=== PATIENT | male | born 1950 | race Caucasian/White ===

== ENCOUNTER 2017-10-04 08:23 | Outpatient (CLI) | payer OTHER, MEDICARE ==
[~2017-10-04 08:23] MED LIST: Iopamidol 370 76% 100 ML VIAL ONE
--- NOTE | 2017-10-04 14:28 | MRI ---
BRAIN MRI WITHOUT CONTRAST: Date: 10-04-17 Comparison: None. History: Migraine headaches, vision changes. Technique: Multiplanar, multisequence MR imaging of the brain obtained without contrast. FINDINGS: The diffusion weighted imaging demonstrates no evidence for acute infarction. The axial gradient echo imaging demonstrates no evidence for intracranial hemorrhage. There is degenerative change at the atlantoaxial interspace. Regional bone marrow signal intensity appears within normal limits. The imaged paranasal sinuses/mastoid air cells demonstrate normal signal intensity. Arterial flow voids at the axial level of the skull base appear unremarkable on the T2 weighted imagi ng. There are multiple subcentimeter foci of increased T2 and FLAIR signal scattered throughout the p eriventricular, deep, and subcortical white matter of bilateral frontal lobes. IMPRESSION: Evidence of small vessel disease. No acute infarction or intracranial hemorrhage. No midline shift/ma ss effect or ventricular enlargement. POS: [facility]
--- NOTE | 2017-10-04 14:58 | MRI ---
MRI OF THE RIGHT UPPER EXTREMITY WITHOUT CONTRAST: Date: 10/04/17 INDICATION: Injury to the right ring finger while climbing on to a jet ski last year, concern for possible volar plate rupture. TECHNIQUE: Multiplanar, multisequence MR images were obtained of the right hand. Surface marker was placed in th e region of interest. FINDINGS: There is a complete transection of the proximal aspect of the ring finger PIP volar plate with distra ction of the volar plate fragment approximately 3.0 mm. This is best seen on image 5 of series 11. Th e visualized flexor tendons appear intact. The extensor tendons appear intact. There is some mild pallavi ma within the bone marrow of the ring finger proximal phalangeal shaft, as well as within the volar b ase of the ring finger middle phalanx. The remaining flexor tendon on the visualized index, long, and small finger appear within normal limits. IMPRESSION: 1. Complete full thickness fracture of the proximal aspect of the volar plate of the ring finger PIP joint. 2. Mild reactive marrow edema of the ring finger proximal phalangeal shaft, as well as the volar bas e of the ring finger middle phalanx. POS: [facility]
--- NOTE | 2017-10-04 16:03 | CT ---
EXAM: CT ANGIOGRAM OF THE HEAD AND NECK: HISTORY: Vision changes. Migraine headaches. COMPARISON: None. CORRELATION: Brain MRI 10/04/17. TECHNIQUE: A noncontrast head CT is performed in the axial plane. CT angiogram of the head and neck is performed in the axial plane. Three-dimensional reformatted [place] ges are submitted for interpretation. FINDINGS: NONCONTRAST HEAD CT: No parenchymal hemorrhage. No extraaxial hematoma. No midline shift. Basilar cisterns are patent. Brain volume, age appropriate. Cortical berg-white matter differentiation is preserved. Ventricles and sulci are patent and symmetric. Minimal white matter hypodensities due to chronic small-vessel ischemic changes are noted. Adequate aeration of the sinuses and mastoid air cells. POSTCONTRAST HEAD CT: Cortical berg-white matter differentiation is preserved. Ventricles and sulci are patent and symmetr ic. Visualized ocular lenses have appropriate location. Bilateral globes are intact. Retrobulbar fat is preserved. Symmetric attenuation of the optic nerves and ocular rectus muscles. Aerodigestive tract is patent. No mucosal abnormality. Midline fatty raphae of the tongue is preser gray. There is limited evaluation of the oral cavity due to dental amalgam artifact. Symmetric attenuation of the parotid and submandibular glands. Symmetric attenuation of the sternocl eidomastoid muscles. Appropriate attenuation of the thyroid gland. No evidence of lymphadenopathy by size criteria. Cervical spine vertebral body height is maintained. No fracture. No prevertebral soft tissue swelli ng. No epidural hematoma. Visualized lung apices and upper mediastinum are unremarkable. CT ANGIOGRAM: The aortic arch has overall appropriate enhancement of luminal diameter. RIGHT CAROTID: The innominate artery origin has appropriate enhancement and luminal diameter. The right common [place] tid artery has appropriate enhancement and luminal diameter. At the right carotid bifurcation, there is a small focus of outpouching of contrast on the posterior slightly medial aspect of the carotid bifurcation implying a small ulceration. There is a small focu s of short segment mild to moderate stenosis involving the proximal-most right internal carotid arter y. The remainder of the right internal carotid artery has appropriate enhancement and luminal diamet er. LEFT CAROTID: The left carotid artery origin has appropriate enhancement and luminal diameter. The left common car otid artery has appropriate enhancement and luminal diameter. There is short-segment moderate mild s tenosis involving the proximal left internal carotid artery. There is associated eccentric thrombus. A small focus of ulceration is noted (axial image 132, series 5). The remainder of the left international banker al carotid artery has appropriate enhancement and luminal diameter. The origin of the left and right vertebral artery are patent. The cervical vertebral arteries are pa tent. The left vertebral artery is dominant. Bilateral subclavian arteries are patent and unremarkable. CT ANGIOGRAM OF [place]: There is symmetric enhancement and luminal diameter of the intracranial internal carotid arteries. T here is atherosclerosis without significant stenosis of bilateral cavernous carotid segments. ANTERIOR CIRCULATION: Bilateral A1 and M1 segments have segment enhancement and luminal diameter. Proximal A2 segments and proximal MCA branches are symmetric. POSTERIOR CIRCULATION: Left and right PICA artery origins are unremarkable. Both vertebral arteries supply a normal caliber basilar artery. The left and right P1 segments have symmetric size and enhancement. IMPRESSION: 1. Unremarkable CT angiogram of the [place]. 2. Significant atherosclerotic disease in bilateral internal carotid arteries as well as the right c arotid bifurcation as detailed above. There are small areas of ulceration in both carotid arteries a s detailed above. Consultation with cardiovascular surgery is recommended. POS: [facility]
--- NOTE | 2017-10-05 14:07 | CT ---
EXAM: CT ANGIOGRAM OF THE HEAD AND NECK: HISTORY: Vision changes. Migraine headaches. COMPARISON: None. CORRELATION: Brain MRI 10/04/17. TECHNIQUE: A noncontrast head CT is performed in the axial plane. CT angiogram of the head and neck is performed in the axial plane. Three-dimensional reformatted im ages are submitted for interpretation. FINDINGS: NONCONTRAST HEAD CT: No parenchymal hemorrhage. No extraaxial hematoma. No midline shift. Basilar cisterns are patent. Brain volume, age appropriate. Cortical berg-white matter differentiation is preserved. Ventricles and sulci are patent and symmetric. Minimal white matter hypodensities due to chronic small-vessel ischemic changes are noted. Adequate aeration of the sinuses and mastoid air cells. POSTCONTRAST HEAD CT: Cortical berg-white matter differentiation is preserved. Ventricles and sulci are patent and symmet patricia. Visualized ocular lenses have appropriate location. Bilateral globes are intact. Retrobulbar fat i s preserved. Symmetric attenuation of the optic nerves and ocular rectus muscles. Aerodigestive tract is patent. No mucosal abnormality. Midline fatty raphae of the tongue is prese rved. There is limited evaluation of the oral cavity due to dental amalgam artifact. Symmetric attenuation of the parotid and submandibular glands. Symmetric attenuation of the sternoc leidomastoid muscles. Appropriate attenuation of the thyroid gland. No evidence of lymphadenopathy by size criteria. Cervical spine vertebral body height is maintained. No fracture. No prevertebral soft tissue swell ing. No epidural hematoma. Visualized lung apices and upper mediastinum are unremarkable. CT ANGIOGRAM: The aortic arch has overall appropriate enhancement of luminal diameter. RIGHT CAROTID: The innominate artery origin has appropriate enhancement and luminal diameter. The right common car otid artery has appropriate enhancement and luminal diameter. At the right carotid bifurcation, there is a small focus of outpouching of contrast on the posterior slightly medial aspect of the carotid bifurcation implying a small ulceration. There is a small fo cus of short segment mild to moderate stenosis involving the proximal-most right internal carotid ar berny. The remainder of the right internal carotid artery has appropriate enhancement and luminal di ameter. LEFT CAROTID: The left carotid artery origin has appropriate enhancement and luminal diameter. The left common ca rotid artery has appropriate enhancement and luminal diameter. There is short-segment moderate mild stenosis involving the proximal left internal carotid artery. There is associated eccentric thromb us. A small focus of ulceration is noted (axial image 132, series 5). The remainder of the left in ternal carotid artery has appropriate enhancement and luminal diameter. The origin of the left and right vertebral artery are patent. The cervical vertebral arteries are p atent. The left vertebral artery is dominant. Bilateral subclavian arteries are patent and unremarkable. CT ANGIOGRAM OF [place]: There is symmetric enhancement and luminal diameter of the intracranial internal carotid arteries. There is atherosclerosis without significant stenosis of bilateral cavernous carotid segments. ANTERIOR CIRCULATION: Bilateral A1 and M1 segments have segment enhancement and luminal diameter. Proximal A2 segments an d proximal MCA branches are symmetric. POSTERIOR CIRCULATION: Left and right PICA artery origins are unremarkable. Both vertebral arteries supply a normal calibe r basilar artery. The left and right P1 segments have symmetric size and enhancement. IMPRESSION: 1. Unremarkable CT angiogram of the [place]. 2. Significant atherosclerotic disease in bilateral internal carotid arteries as well as the right carotid bifurcation as detailed above. There are small areas of ulceration in both carotid arteries as detailed above. Consultation with cardiovascular surgery is recommended.
== END 2017-10-04 08:24 | disposition home or self-care (01) ==
LOC: MRI 08:23
PROVIDERS: ATTEND Student in an Organized Health Care Education/Training Program
DX: G43.909 Migraine, unspecified, not intractable, without status migrainosus (principal); H53.9 Unspecified visual disturbance; G45.9 Transient cerebral ischemic attack, unspecified; I65.23 Occlusion and stenosis of bilateral carotid arteries; S62.614A Displaced fracture of proximal phalanx of right ring finger, initial encounter for closed fracture; R60.9 Edema, unspecified; I67.9 Cerebrovascular disease, unspecified
CPT/HCPCS: 70496; 70498; 70551; 95816

== ENCOUNTER 2021-08-11 15:25 | Outpatient (CLI) | payer MEDICARE, BC ==
[2021-08-12 12:39] LABS: SARS-CoV-2 PCR by NAA Not Detected (NotDetected)
== END 2021-08-11 15:26 | disposition home or self-care (01) ==
LOC: LABBT 15:25
PROVIDERS: ATTEND Thoracic Surgery (Cardiothoracic Vascular Surgery)
DX: Z01.812 Encounter for preprocedural laboratory examination (principal); Z20.822 Contact with and (suspected) exposure to COVID-19
CPT/HCPCS: U0003; U0005

== ENCOUNTER 2021-08-11 17:45 | Inpatient (IN) | payer MEDICARE, BC ==
[2021-08-14] MEDS ORDERED: EPINEPHrine 1 MG/ML AMP ONE (09:05)
[2021-08-14] MEDS ORDERED: Protamine Sulfate 50 MG/5 ML VIAL ONE (09:05)
[2021-08-14] MEDS ORDERED: Dexamethasone 4 mg/ml Vial ONE (09:05)
[2021-08-14] MEDS ORDERED: Bupivacaine PF 0.5% 30 ML VIAL ONE (09:05)
[2021-08-14] MEDS ORDERED: Heparin 5,000 UNITS/ML VIAL ONE (09:05)
[2021-08-14] MEDS ORDERED: ePHEDrine 50 MG/ML VIAL ONE (10:20)
[2021-08-14] MEDS ORDERED: Ketorolac Tromethamine 30 MG/ML VIAL ONE (10:20)
[2021-08-14] MEDS ORDERED: Naloxone HCl 0.4 mg/ml Vial ONE (10:20)
[2021-08-14] MEDS ORDERED: Ondansetron PF 4 MG/2 ML Vial ONE (10:20)
[2021-08-14] MEDS ORDERED: Dexamethasone 20 MG/5 ML VIAL ONE (10:20)
[2021-08-14] MEDS ORDERED: PROPOFOL 200 MG/20 ML VIAL ONE (10:20)
[2021-08-14] MEDS ORDERED: Rocuronium Bromide 10 MG/ML (10ML VIAL) ONE (10:20)
[2021-08-14] MEDS ORDERED: Glycopyrrolate 0.2 MG/ML 5 ML SYRINGE ONE (10:20)
[2021-08-14] MEDS ORDERED: PHENYLEPHRINE-NS 100 MCG/ML 10 ML SYRINGE ONE (10:20)
[2021-08-14] MEDS ORDERED: Fentanyl 100 MCG/2 ML VIAL ONE (10:24)
[2021-08-14] MEDS: Sodium Chloride 0.9% 1,000 ML IV SCH (12:00)
[2021-08-14] MEDS ORDERED: Acetaminophen 325 MG TAB PO PRN (14:51)
[2021-08-14] MEDS ORDERED: hydrALAZINE 20 MG/ML VIAL SLOW IVP PRN (14:51)
[2021-08-14] MEDS ORDERED: Nitroglycerin 50 MG/250 ML BOT 250 ML IVPB PRN (14:51)
[2021-08-14] MEDS ORDERED: Phenylephrine 40 MG in Sodium Chloride 0.9% 250 ML 250 ML IVPB PRN (14:51)
[2021-08-14] MEDS ORDERED: Ondansetron PF 4 MG/2 ML Vial IVP PRN (14:51)
[2021-08-14] MEDS ORDERED: CEFAZOLIN 1 GM VIAL ONE (15:00)
[2021-08-14] MEDS: CEFAZOLIN 2 GM in Premix Bag 1 BAG IVPB SCH (18:11)
[2021-08-14] MEDS ORDERED: Albuterol Sulfate 1.25 MG/3 ML NEB ONE (21:00)
[2021-08-14] MEDS ORDERED: Atorvastatin Calcium 40 MG TAB PO SCH (21:00)
[2021-08-14] MEDS ORDERED: Atorvastatin Calcium 20 MG TAB ONE (21:03)
[2021-08-14] MEDS ORDERED: cefOXitin Sodium/Dextrose 2 GM/50 ML BAG ONE (21:07)
[2021-08-14 22:31] VITALS: BMI 11.6
[2021-08-15] MEDS: Sodium Chloride 0.9% 1,000 ML IV SCH (02:28)
[2021-08-15] MEDS: CEFAZOLIN 2 GM in Premix Bag 1 BAG IVPB SCH (02:30)
[2021-08-15 07:47] VITALS: TEMP 98.3
[2021-08-15 09:53] VITALS: BP 106/55
[2021-08-15] MEDS ORDERED: Clopidogrel Bisulfate 75 MG TAB PO SCH (21:00)
[2021-08-15] MEDS ORDERED: Aspirin 81 mg Enteric Coated Tablet PO SCH (21:00)
== END 2021-08-15 09:40 | disposition home or self-care (01) | DRG 36 ==
LOC: SURG A 08-14 07:56 → EDSTATUS 08-14 17:45 → PACU-TCU 08-14 23:04
PROVIDERS: ADMIT Thoracic Surgery (Cardiothoracic Vascular Surgery); ATTEND Thoracic Surgery (Cardiothoracic Vascular Surgery)
PROC: 037L3DZ Dilation of Left Internal Carotid Artery with Intraluminal Device, Percutaneous Approach (ICD-10-PCS; principal; 2021-08-14)
PROC: B344ZZ3 Ultrasonography of Left Common Carotid Artery, Intravascular (ICD-10-PCS; 2021-08-14)
DX: I65.23 Occlusion and stenosis of bilateral carotid arteries (principal); Z20.822 Contact with and (suspected) exposure to COVID-19; Z79.82 Long term (current) use of aspirin; Z90.89 Acquired absence of other organs; Z98.890 Other specified postprocedural states; R26.9 Unspecified abnormalities of gait and mobility
CPT/HCPCS: 76000; 94640; C1725; C1876; C1884; J0171; J0690; J0694; J1100; J1642; J1644; J1885; J2310; J2405; J2704; J2720; J3010; J3490; J7050; J7620; S0020; U0003; U0005

== ENCOUNTER 2021-09-04 08:15 | Inpatient (IN) | payer MEDICARE, BC ==
[2021-09-09] MEDS ORDERED: Lidocaine 1% w/Epinephrine 1:100K 20 ML VIAL ONE (06:40)
[2021-09-09] MEDS ORDERED: Bupivacaine PF 0.5% 30 ML VIAL ONE (06:40)
[2021-09-09] MEDS ORDERED: Heparin 5,000 UNITS/ML VIAL ONE (06:43)
[2021-09-09] MEDS ORDERED: Protamine Sulfate 50 MG/5 ML VIAL ONE (06:43)
[2021-09-09] MEDS ORDERED: Midazolam HCl 2 mg/2 ml Vial ONE (06:54)
[2021-09-09] MEDS ORDERED: Fentanyl 100 MCG/2 ML VIAL ONE (06:54)
[2021-09-09] MEDS ORDERED: Ondansetron PF 4 MG/2 ML Vial ONE (07:32)
[2021-09-09] MEDS ORDERED: ePHEDrine 50 MG/ML VIAL ONE (07:32)
[2021-09-09] MEDS ORDERED: Dexamethasone 20 MG/5 ML VIAL ONE (07:32)
[2021-09-09] MEDS ORDERED: Rocuronium Bromide 10 MG/ML (10ML VIAL) ONE (07:32)
[2021-09-09] MEDS ORDERED: PROPOFOL 200 MG/20 ML VIAL ONE (07:32)
[2021-09-09] MEDS ORDERED: Glycopyrrolate 0.2 MG/ML 5 ML SYRINGE ONE (07:32)
[2021-09-09] MEDS ORDERED: Labetalol HCl 100 MG/20 ML VIAL ONE (07:32)
[2021-09-09] MEDS ORDERED: Ondansetron HCl/PF 4 MG/2 ML Vial IVP PRN (09:18)
[2021-09-09] MEDS ORDERED: Promethazine HCl 25 MG/ML VIAL IM PRN (09:18)
[2021-09-09] MEDS ORDERED: Promethazine HCl 25 MG/ML VIAL IVPB PRN (09:18)
[2021-09-09] MEDS ORDERED: Fentanyl 100 MCG/2 ML VIAL SLOW IVP PRN (10:13)
[2021-09-09] MEDS ORDERED: Nitroglycerin 50 MG/250 ML BOT 250 ML IVPB PRN (10:13)
[2021-09-09] MEDS ORDERED: Acetaminophen 325 MG TAB PO PRN (10:13)
[2021-09-09] MEDS ORDERED: Phenylephrine 40 MG in Sodium Chloride 0.9% 250 ML 250 ML IVPB PRN (10:13)
[2021-09-09] MEDS ORDERED: Ondansetron PF 4 MG/2 ML Vial IVP PRN (10:13)
[2021-09-09] MEDS ORDERED: hydrALAZINE 20 MG/ML VIAL SLOW IVP PRN (10:13)
[2021-09-09] MEDS ORDERED: ceFAZolin Sodium/D5W 2 GM in Premix Bag 1 BAG IVPB SCH (14:00)
[2021-09-09] MEDS: Sodium Chloride 0.9% 1,000 ML IV SCH ×2 (14:45→21:32)
[2021-09-09 14:46] VITALS: BMI 24.8
[2021-09-09] MEDS ORDERED: FLU VACC QS2021-22(65YR UP)/PF 240 MCG/0.7 ML SYRINGE IM ONE (15:45)
[2021-09-09] MEDS ORDERED: Atorvastatin Calcium 40 MG TAB PO SCH (21:00)
[2021-09-09] MEDS: CEFAZOLIN 2 GM in Sodium Chloride 0.9% 100 ML IVPB SCH (21:36)
[2021-09-10] MEDS: Sodium Chloride 0.9% 1,000 ML IV SCH (04:42)
[2021-09-10] MEDS: CEFAZOLIN 2 GM in Sodium Chloride 0.9% 100 ML IVPB SCH (04:43)
[2021-09-10 07:14] VITALS: TEMP 98.7
[2021-09-10] MEDS ORDERED: Clopidogrel Bisulfate 75 MG TAB PO SCH (09:00)
[2021-09-10] MEDS ORDERED: Aspirin 81 mg Enteric Coated Tablet PO SCH (09:00)
== END 2021-09-10 08:36 | disposition home or self-care (01) | DRG 36 ==
LOC: 2NO 09-09 05:53 → CCU 09-09 15:00
PROVIDERS: ADMIT Thoracic Surgery (Cardiothoracic Vascular Surgery); ATTEND Thoracic Surgery (Cardiothoracic Vascular Surgery)
PROC: 037H3DZ Dilation of Right Common Carotid Artery with Intraluminal Device, Percutaneous Approach (ICD-10-PCS; principal; 2021-09-09)
PROC: B343ZZ3 Ultrasonography of Right Common Carotid Artery, Intravascular (ICD-10-PCS; 2021-09-09)
PROC: B54CZZA Ultrasonography of Left Lower Extremity Veins, Guidance (ICD-10-PCS; 2021-09-09)
DX: I65.21 Occlusion and stenosis of right carotid artery (principal); Z20.822 Contact with and (suspected) exposure to COVID-19; I10 Essential (primary) hypertension; E78.5 Hyperlipidemia, unspecified; I73.9 Peripheral vascular disease, unspecified; G43.909 Migraine, unspecified, not intractable, without status migrainosus; Z79.82 Long term (current) use of aspirin; Z79.899 Other long term (current) drug therapy; Z90.09 Acquired absence of other part of head and neck; Z98.890 Other specified postprocedural states
CPT/HCPCS: 76000; 90471; 90662; 94640; C1725; C1876; C1884; G0008; J0690; J1100; J1642; J1644; J2250; J2405; J2704; J2720; J3010; J3490; J7620; S0020

== ENCOUNTER 2021-09-04 08:53 | Outpatient (CLI) | payer MEDICARE, BC ==
[2021-09-04 10:06] LABS: Hemoglobin 14.5 g/dL (13.5-17.5); Mean Corpuscular HGB CONC 33.6 g/dL (32.0-36.0); Mean Corpuscular Hemoglobin 29.4 pg (27.0-33.0); Mean Corpuscular Volume 87.4 fl (81.2-95.1); Mean Platelet Volume 10.9 fl (7.4-10.4); Platelet Count 167 10x3/uL (150-450); RBC Distribution Width 13.2 % (11.5-14.5); Red Blood Cell (RBC) Count 4.93 10x6/uL (4.32-5.72); White Blood Cell (WBC) Count 4.7 10x3/uL (3.5-10.5)
[2021-09-04 10:15] LABS: Anion Gap 13 mmol/L (10-20); BUN (Urea Nitrogen) 17 mg/dL (8.4-25.7); Calc. Creatinine Clearance 0 mL/min (70-130); Calcium 10.1 mg/dL (7.8-10.44); Carbon Dioxide 26 mmol/L (23-31); Chloride 106 mmol/L (98-107); Glucose 127 mg/dL (83-110); Potassium 4.3 mmol/L (3.5-5.1); Sodium 141 mmol/L (136-145)
[2021-09-04 20:17] LABS: SARS-CoV-2 PCR by NAA Not Detected (NotDetected)
== END 2021-09-04 08:54 | disposition home or self-care (01) ==
LOC: LABBT 08:53
PROVIDERS: ATTEND Thoracic Surgery (Cardiothoracic Vascular Surgery)
DX: Z01.812 Encounter for preprocedural laboratory examination (principal); Z20.822 Contact with and (suspected) exposure to COVID-19
CPT/HCPCS: 80048; 85027; U0003; U0005

== ENCOUNTER 2022-08-12 20:54 | Inpatient (IN) | payer MEDICARE, BC ==
[2022-08-12 21:31] LABS: #Eosinphils 0.1 thou/uL (0.0-0.7); #Lymphocytes 0.3 thou/uL (1.20-3.40); #Monocytes 0.4 thou/uL (0.11-0.59); #Neutrophils 5.1 thou/uL (1.40-6.50); %Basophils 0.3 % (0.0-1.0); %Eosinophils 1.3 % (0.0-10.0); %Lymphocytes 5.7 % (21.0-51.0); %Monocytes 6.3 % (0.0-10.0); %Neutrophils 86.4 % (42.0-75.0); Hemoglobin 14.5 g/dL (14.0-18.0); Mean Corpuscular HGB CONC 33.7 g/dL (32.0-36.0); Mean Corpuscular Hemoglobin 30.5 pg (27.0-31.0); Mean Corpuscular Volume 90.6 fL (78.0-98.0); Mean Platelet Volume 8.6 fL (7.4-10.4); Platelet Count 153 thou/uL (130-400); RBC Distribution Width 12.4 % (11.5-14.5); Red Blood Cell (RBC) Count 4.76 mill/uL (4.70-6.10); White Blood Cell (WBC) Count 5.9 thou/uL (4.8-10.8)
[2022-08-12 22:03] LABS: ALT (SGPT) 22 U/L (8-55); AST (SGOT) 22 U/L (5-34); Albumin 4.3 g/dL (3.4-4.8); Alkaline Phosphatase 80 U/L (40-110); Anion Gap 16 mmol/L (10-20); BUN (Urea Nitrogen) 19 mg/dL (8.4-25.7); Bilirubin, Total 0.9 mg/dL (0.2-1.2); Calc. Creatinine Clearance 0 mL/min (70-130); Calcium 9.4 mg/dL (7.8-10.44); Carbon Dioxide 23 mmol/L (23-31); Chloride 105 mmol/L (98-107); Estimated GFR 62; Globulin 2.5 g/dL (2.4-3.5); Glucose 131 mg/dL (83-110); Potassium 3.7 mmol/L (3.5-5.1); Protein, Total 6.8 g/dL (5.8-8.1); Sodium 140 mmol/L (136-145)
[2022-08-12] MEDS ORDERED: Acetaminophen 500 MG TAB ONE (22:19)
[2022-08-12 23:24] LABS: SARS-CoV-2 NAA Rapid Test Not Detected (NotDetected)
[2022-08-13 00:19] VITALS: BMI 24.2
[2022-08-13] MEDS ORDERED: Oseltamivir 75 MG CAP PO SCH (03:45)
[2022-08-13 03:58] LABS: Bilirubin Negative (Negative); Blood, Urine Negative (Negative); Clarity Clear (Clear); Glucose, Urine (Dipstick) Normal (Negative); Ketone, Urine Negative (Negative); Leukocyte Negative Leu/uL (Negative); Nitrite Negative (Negative); Protein, Urine (Dipstick) Negative (Neg-Trace); Urobilinogen Normal mg/dL (Less than 2)
[2022-08-13] MEDS ORDERED: Acetaminophen 500 MG TAB ONE (05:58)
[2022-08-13] MEDS ORDERED: Nitroglycerin 0.4 MG TAB (25 Tab Bottle) SL PRN (08:08)
[2022-08-13] MEDS ORDERED: Aspirin 325 MG TAB PO SCH (08:15)
[2022-08-13] MEDS ORDERED: Aspirin 325 MG TAB ONE (08:38)
[2022-08-13] MEDS ORDERED: Enoxaparin Sodium 40 MG/0.4 ML SYRINGE ONE (08:38)
[2022-08-13] MEDS: Aspirin Chewable 81 MG TAB PO SCH (08:43)
[2022-08-13] MEDS ORDERED: Enoxaparin Sodium 40 MG/0.4 ML SYRINGE SC SCH (09:00)
[2022-08-13 09:04] LABS: Magnesium 2.1 mg/dL (1.6-2.6)
[2022-08-13] MEDS ORDERED: Acetaminophen 325 MG TAB ONE (12:44)
[2022-08-13] MEDS: Acetaminophen 325 MG TAB PO PRN ×2 (12:47→20:57)
[2022-08-13] MEDS ORDERED: Ondansetron ODT 4 MG TAB SL PRN (16:15)
[2022-08-13] MEDS ORDERED: Ondansetron PF 4 MG/2 ML Vial IVP PRN (16:15)
[2022-08-13] MEDS: Atorvastatin Calcium 40 MG TAB PO SCH (20:56)
[2022-08-13] MEDS: Enoxaparin Sodium 80 MG/0.8 ML SYRINGE SC SCH (20:56)
[2022-08-14 05:00] LABS: ALT (SGPT) 39 U/L (8-55); AST (SGOT) 55 U/L (5-34); Albumin 4.1 g/dL (3.4-4.8); Alkaline Phosphatase 93 U/L (40-110); Anion Gap 14 mmol/L (10-20); BUN (Urea Nitrogen) 16 mg/dL (8.4-25.7); Calc. Creatinine Clearance 60 mL/min (70-130); Carbon Dioxide 25 mmol/L (23-31); Cardiac Risk 2.2 (Less than 4.5); Chloride 105 mmol/L (98-107); Cholesterol 149 mg/dl (< 200 Desired); Estimated GFR 74; Globulin 2.8 g/dL (2.4-3.5); Glucose 95 mg/dL (83-110); HDL Cholesterol 67 mg/dL (>60 Neg Risk); LDL Cholesterol, Calculated 63 mg/dL; Protein, Total 6.9 g/dL (5.8-8.1); Sodium 140 mmol/L (136-145); Triglycerides 96 mg/dL (Less than 150)
[2022-08-14 05:53] LABS: Critical Call Chem Troponin I D7; Troponin I 3.352 ng/mL (< 0.028)
[2022-08-14] MEDS: Aspirin Chewable 81 MG TAB PO SCH (08:46)
[2022-08-14] MEDS: Enoxaparin Sodium 80 MG/0.8 ML SYRINGE SC SCH ×2 (08:47→19:32)
[2022-08-14 09:50] LABS: Critical Call Chem Troponin I RESULT DECREASING
[2022-08-14] MEDS ORDERED: Sodium Chloride 0.9% 500 ML IV SCH (10:30)
[2022-08-14] MEDS ORDERED: Communication Order-Pharmacy FS SCH (10:30)
[2022-08-14] MEDS ORDERED: Midazolam HCl 2 mg/2 ml Vial ONE (12:00)
[2022-08-14] MEDS ORDERED: Lidocaine 1% (PF) 30 ML VIAL ONE (12:01)
[2022-08-14] MEDS ORDERED: Heparin 10,000 UNITS/ 10 ML VIAL ONE (12:01)
[2022-08-14] MEDS ORDERED: Fentanyl 100 MCG/2 ML VIAL ONE (12:01)
[2022-08-14] MEDS ORDERED: Sodium Chloride 0.9% 200 ML IV PRN (13:20)
[2022-08-14] MEDS ORDERED: Acetaminophen/Codeine 30-300mg Tablet PO PRN (13:20)
[2022-08-14] MEDS ORDERED: Iopamidol 370 76% 100 ML VIAL ONE (15:00)
[2022-08-14] MEDS ORDERED: Communication Order-Pharmacy FS ONE (15:10)
[2022-08-14] MEDS: Atorvastatin Calcium 40 MG TAB PO SCH (20:03)
[2022-08-15] MEDS: Aspirin Chewable 81 MG TAB PO SCH (09:02)
[2022-08-15] MEDS: Enoxaparin Sodium 80 MG/0.8 ML SYRINGE SC SCH ×2 (09:02→19:56)
[2022-08-15] MEDS ORDERED: Polyethylene Glycol 3350 17 GM Packet PO PRN (18:49)
[2022-08-15] MEDS: Acetaminophen 325 MG TAB PO PRN (20:10)
[2022-08-16] MEDS: Atorvastatin Calcium 40 MG TAB PO SCH (08:13)
[2022-08-16] MEDS: Enoxaparin Sodium 80 MG/0.8 ML SYRINGE SC SCH ×2 (08:13→21:13)
[2022-08-16] MEDS: Aspirin Chewable 81 MG TAB PO SCH (08:14)
[2022-08-17 05:12] LABS: #Eosinphils 0.2 thou/uL (0.0-0.7); #Lymphocytes 1.6 thou/uL (1.20-3.40); #Monocytes 0.5 thou/uL (0.11-0.59); #Neutrophils 1.8 thou/uL (1.40-6.50); %Basophils 0.4 % (0.0-1.0); %Eosinophils 3.9 % (0.0-10.0); %Lymphocytes 39.2 % (21.0-51.0); %Monocytes 12.3 % (0.0-10.0); %Neutrophils 44.1 % (42.0-75.0); Hemoglobin 14.8 g/dL (14.0-18.0); Mean Corpuscular HGB CONC 34.4 g/dL (32.0-36.0); Mean Corpuscular Hemoglobin 31.1 pg (27.0-31.0); Mean Corpuscular Volume 90.5 fL (78.0-98.0); Mean Platelet Volume 9.2 fL (7.4-10.4); Platelet Count 133 thou/uL (130-400); RBC Distribution Width 12.1 % (11.5-14.5); Red Blood Cell (RBC) Count 4.76 mill/uL (4.70-6.10); White Blood Cell (WBC) Count 4.1 thou/uL (4.8-10.8)
[2022-08-17 05:36] LABS: Anion Gap 13 mmol/L (10-20); BUN (Urea Nitrogen) 18 mg/dL (8.4-25.7); Calc. Creatinine Clearance 75 mL/min (70-130); Calcium 9.1 mg/dL (7.8-10.44); Carbon Dioxide 26 mmol/L (23-31); Chloride 105 mmol/L (98-107); Estimated GFR 87; Glucose 96 mg/dL (83-110); Sodium 140 mmol/L (136-145)
[2022-08-17] MEDS ORDERED: Albumin 5% 500 ML ONE (06:33)
[2022-08-17] MEDS ORDERED: Dexamethasone 4 mg/ml Vial ONE (06:33)
[2022-08-17] MEDS ORDERED: Bupivacaine HCl 0.5%/Epinephrine 1:200,000/PF 30 ml Vial ONE (06:33)
[2022-08-17] MEDS: Enoxaparin Sodium 80 MG/0.8 ML SYRINGE SC SCH (08:00)
[2022-08-17] MEDS: Aspirin Chewable 81 MG TAB PO SCH (08:00)
[2022-08-17] MEDS: Atorvastatin Calcium 40 MG TAB PO SCH (08:00)
[2022-08-17] MEDS ORDERED: Fentanyl 100 MCG/2 ML VIAL ONE (08:39)
[2022-08-17] MEDS ORDERED: Midazolam HCl 2 mg/2 ml Vial ONE (08:39)
[2022-08-17] MEDS ORDERED: Lidocaine 1% MPF 2 ML VIAL ONE ×2 (08:39→09:50)
[2022-08-17] MEDS ORDERED: Midazolam HCl 5 mg/5 ml Vial ONE (09:20)
[2022-08-17] MEDS ORDERED: Phenylephrine 10 MG/ML VIAL ONE (09:21)
[2022-08-17] MEDS ORDERED: Norepinephrine 4 MG/4 ML VIAL ONE (09:21)
[2022-08-17] MEDS ORDERED: Vecuronium 10 MG VIAL ONE ×2 (09:21→09:50)
[2022-08-17] MEDS ORDERED: Mannitol 12.5 GM/50 ML ONE (09:50)
[2022-08-17] MEDS ORDERED: Heparin 30,000 units/30 ml VIAL ONE (09:50)
[2022-08-17] MEDS ORDERED: Sodium Bicarb 50 MEQ/50 ML Abboject 8.4% SYRINGE ONE (09:50)
[2022-08-17] MEDS ORDERED: Heparin 5,000 UNITS/ML VIAL ONE (09:50)
[2022-08-17] MEDS ORDERED: Aminocaproic Acid 5 GM/20 ML VIAL ONE (09:50)
[2022-08-17] MEDS ORDERED: Thrombin 5000 UNITS/5 ML VIAL ONE (09:50)
[2022-08-17] MEDS ORDERED: Cardioplegic Soln 1,000 ML BAG ONE (09:50)
[2022-08-17] MEDS ORDERED: Magnesium Sulfate 1 GM/2 ML VIAL ONE (09:50)
[2022-08-17] MEDS ORDERED: Calcium Chloride 1 GM/10 ML Abboject SYRINGE ONE (09:50)
[2022-08-17] MEDS ORDERED: Rocuronium Bromide 10 MG/ML (10ML VIAL) ONE (09:50)
[2022-08-17] MEDS ORDERED: Glycopyrrolate 0.2 MG/ML 5 ML SYRINGE ONE (09:50)
[2022-08-17] MEDS ORDERED: PROPOFOL 200 MG/20 ML VIAL ONE (09:50)
[2022-08-17] MEDS ORDERED: Protamine Sulfate 250 MG/25 ML VIAL ONE (09:50)
[2022-08-17] MEDS ORDERED: Papaverine 60 MG/2 ML VIAL ONE (09:50)
[2022-08-17] MEDS ORDERED: Lidocaine 2% PF 100 mg/5 ml Syringe ONE (09:50)
[2022-08-17] MEDS ORDERED: Sodium Chloride 0.9% 100 ML ONE (09:51)
[2022-08-17] MEDS ORDERED: CEFAZOLIN 2 GM VIAL ONE (09:51)
[2022-08-17] MEDS ORDERED: fentaNYL Citrate/PF 100 MCG/2 ML SYRINGE ONE (09:58)
[2022-08-17] MEDS ORDERED: Heparin 10,000 UNITS/1 ML VIAL 30,000 UNITS in Sodium Chloride 0.9% 1,000 ML FS SCH (10:00)
[2022-08-17] MEDS ORDERED: CEFAZOLIN 2 GM in Sodium Chloride 0.9% 100 ML IVPB SCH (10:30)
[2022-08-17 13:29] LABS: Actual Bicarbonate (HCO3a) 20.1 mEq/L (22-28); Base Excess (BEa) -3.1 mEq/L (-2.0 to +3.0); CO2 Tension 30.4 mmHg (35.0-45.0); Calcium, Ionized (arterial) 1.11 mmol/L (1.12-1.30); Carboxyhemoglobin (COHb) 0.3 gm% (0.0-3.0); Hemoglobin (Hb) 12.8 g/dL (14.0-18.0); O2 Tension (PaO2), arterial 173.6 mmHg (> 70.0); Potassium - ABG Lab 3.76 mmol/L (3.70-5.30); Puncture Site Arterial Line; pH, Arterial 7.44 (7.35-7.45)
[2022-08-17] MEDS ORDERED: Ondansetron PF 4 MG/2 ML Vial IVP PRN (13:29)
[2022-08-17] MEDS ORDERED: Bisacodyl 10 MG SUPP PR PRN (13:29)
[2022-08-17] MEDS ORDERED: Morphine 2 MG/ML VIAL SLOW IVP PRN (13:29)
[2022-08-17] MEDS ORDERED: Potassium Chloride 20 MEQ/100 ML PREMIX BAG IVPB PRN (13:29)
[2022-08-17] MEDS ORDERED: Hetastarch 6% 500 ML 500 ML IVPB PRN (13:29)
[2022-08-17] MEDS ORDERED: NOREPINEPHRINE 8 MG/250 ML-D5W 250 ML IVPB PRN (13:29)
[2022-08-17] MEDS ORDERED: Post-Op Insulin Drip Protocol IVPB ONE (13:29)
[2022-08-17] MEDS ORDERED: Guaifenesin DM 100-10/5 ML UDCUP PO PRN (13:29)
[2022-08-17] MEDS ORDERED: Magnesium 2 GM/50 ML(in water) 2 GM in Premix Bag 1 BAG IVPB SCH (13:29)
[2022-08-17] MEDS ORDERED: Fentanyl 100 MCG/2 ML VIAL SLOW IVP PRN ×2 (13:29)
[2022-08-17] MEDS ORDERED: Mag-Al 1200 mg/1200 mg/30 ML UDCUP PO PRN (13:29)
[2022-08-17] MEDS ORDERED: Acetaminophen 325 MG TAB PO PRN (13:29)
[2022-08-17] MEDS ORDERED: Bisacodyl 5 MG TAB PO PRN (13:29)
[2022-08-17] MEDS ORDERED: HYDROcodone/Acetaminophen 5/325 mg Tablet PO PRN ×2 (13:29)
[2022-08-17] MEDS ORDERED: Nitroglycerin 50 MG/250 ML BOT 250 ML IVPB PRN (13:29)
[2022-08-17] MEDS ORDERED: Dextrose 50% Abboject 50 ML SYRINGE SLOW IVP PRN (13:45)
[2022-08-17] MEDS ORDERED: HUMULIN R 100 UNITS in Sodium Chloride 0.9% 100 ML IVPB SCH (13:45)
[2022-08-17] MEDS ORDERED: Dextrose 5% in Water 1,000 ML IV PRN (13:45)
[2022-08-17 14:01] LABS: #Eosinphils 0.2 thou/uL (0.0-0.7); #Lymphocytes 1.6 thou/uL (1.20-3.40); #Monocytes 0.3 thou/uL (0.11-0.59); #Neutrophils 4.1 thou/uL (1.40-6.50); %Basophils 0.7 % (0.0-1.0); %Eosinophils 2.7 % (0.0-10.0); %Lymphocytes 25.6 % (21.0-51.0); %Monocytes 4.6 % (0.0-10.0); %Neutrophils 66.5 % (42.0-75.0); Hemoglobin 12.2 g/dL (14.0-18.0); Mean Corpuscular Hemoglobin 31.3 pg (27.0-31.0); Mean Corpuscular Volume 89.6 fL (78.0-98.0); Mean Platelet Volume 9.1 fL (7.4-10.4); Platelet Count 79 thou/uL (130-400); RBC Distribution Width 12.2 % (11.5-14.5); White Blood Cell (WBC) Count 6.1 thou/uL (4.8-10.8)
[2022-08-17] MEDS: Lactated Ringer's 1,000 ML IV SCH (14:12)
[2022-08-17 14:15] LABS: INR-International Normal Ratio 1.2; Prothrombin Time 15.7 sec (12.0-14.7)
[2022-08-17 14:25] LABS: MDiff Complete? YES; Ovalocytes SLIGHT = 2-5 cells (100X) (0-1/hpf); Platelet Morphology Comment Appears Decreased
[2022-08-17 14:57] LABS: Chloride 112 mmol/L (98-107)
[2022-08-17 14:58] LABS: Glucose 124 mg/dL (83-110); Potassium 3.7 mmol/L (3.5-5.1); Sodium 139 mmol/L (136-145)
[2022-08-17 15:00] LABS: Carbon Dioxide 17 mmol/L (23-31)
[2022-08-17 15:02] LABS: Calc. Creatinine Clearance 91 mL/min (70-130); Estimated GFR 95
[2022-08-17 15:03] LABS: BUN (Urea Nitrogen) 15 mg/dL (8.4-25.7)
[2022-08-17 15:49] LABS: Base Excess (BEa) -4.1 mEq/L (-2.0 to +3.0); CO2 Tension 29.5 mmHg (35.0-45.0); Calcium, Ionized (arterial) 1.09 mmol/L (1.12-1.30); Hemoglobin (Hb) 13.1 g/dL (14.0-18.0); O2 Tension (PaO2), arterial 127.9 mmHg (> 70.0); Potassium - ABG Lab 4.17 mmol/L (3.70-5.30); pH, Arterial 7.43 (7.35-7.45)
[2022-08-17 15:50] LABS: ALV-art Gradient 120.425 mmHg (0-20); Puncture Site Arterial Line
[2022-08-17] MEDS: Ketorolac Tromethamine 30 MG/ML VIAL IVP SCH ×2 (18:06→23:36)
[2022-08-17] MEDS: CEFAZOLIN 2 GM in Sodium Chloride 0.9% 100 ML IVPB SCH (18:07)
[2022-08-17] MEDS: Insulin Regular 300 UNITS/3 ML VIAL SC PRN ×2 (18:10→21:11)
[2022-08-17 19:21] LABS: Potassium 4.4 mmol/L (3.5-5.1)
[2022-08-17 19:49] LABS: Anion Gap 14 mmol/L (10-20)
[2022-08-17 20:14] LABS: Calcium 7.8 mg/dL (7.8-10.44)
[2022-08-17] MEDS ORDERED: Atorvastatin Calcium 20 MG TAB PO SCH (21:00)
[2022-08-17] MEDS: Famotidine/PF 20 mg/2ml Vial SLOW IVP SCH (21:04)
[2022-08-17 21:18] LABS: Hemoglobin 12.2 g/dL (14.0-18.0)
[2022-08-18] MEDS: CEFAZOLIN 2 GM in Sodium Chloride 0.9% 100 ML IVPB SCH ×2 (02:34→10:19)
[2022-08-18 05:28] LABS: #Lymphocytes 0.7 thou/uL (1.20-3.40); #Monocytes 0.5 thou/uL (0.11-0.59); %Basophils 0.4 % (0.0-1.0); %Eosinophils 0.2 % (0.0-10.0); %Lymphocytes 14.1 % (21.0-51.0); %Monocytes 8.9 % (0.0-10.0); %Neutrophils 76.3 % (42.0-75.0); Hemoglobin 10.2 g/dL (14.0-18.0); Mean Corpuscular HGB CONC 34.6 g/dL (32.0-36.0); Mean Corpuscular Hemoglobin 31.3 pg (27.0-31.0); Mean Corpuscular Volume 90.4 fL (78.0-98.0); Mean Platelet Volume 9.2 fL (7.4-10.4); Platelet Count 84 thou/uL (130-400); RBC Distribution Width 12.6 % (11.5-14.5); Red Blood Cell (RBC) Count 3.25 mill/uL (4.70-6.10); White Blood Cell (WBC) Count 5.2 thou/uL (4.8-10.8)
[2022-08-18 05:32] LABS: Anion Gap 9 mmol/L (10-20); BUN (Urea Nitrogen) 15 mg/dL (8.4-25.7); Calc. Creatinine Clearance 100 mL/min (70-130); Calcium 7.2 mg/dL (7.8-10.44); Carbon Dioxide 22 mmol/L (23-31); Chloride 111 mmol/L (98-107); Estimated GFR 98; Glucose 98 mg/dL (83-110); Sodium 138 mmol/L (136-145)
[2022-08-18] MEDS: Ketorolac Tromethamine 30 MG/ML VIAL IVP SCH ×3 (06:13→17:30)
[2022-08-18] MEDS: Lactated Ringer's 1,000 ML IV SCH ×2 (06:16→19:25)
[2022-08-18] MEDS: Famotidine/PF 20 mg/2ml Vial SLOW IVP SCH (08:42)
[2022-08-18] MEDS: Aspirin 81 mg Enteric Coated Tablet PO SCH (08:42)
[2022-08-18] MEDS: Magnesium 2 GM/50 ML(in water) 2 GM in Premix Bag 1 BAG IVPB SCH (08:43)
[2022-08-18] MEDS ORDERED: Insulin Glargine 30 UNITS/0.3 ML VIAL SC PRN (13:38)
[2022-08-18] MEDS ORDERED: guaiFENesin/Codeine 200 mg/20 mg 10 ml Cup PO SCH (19:00)
[2022-08-18] MEDS ORDERED: diphenhydrAMINE 25 MG CAP PO PRN (19:25)
[2022-08-18] MEDS ORDERED: Bisacodyl 10 MG SUPP PR PRN (19:25)
[2022-08-18] MEDS ORDERED: Zolpidem Tartrate 5 MG TAB PO PRN (19:25)
[2022-08-18] MEDS ORDERED: Mineral Oil ENEMA PR PRN (19:25)
[2022-08-18] MEDS ORDERED: Milk Of Magnesia 30 ML UDCUP PO PRN (19:25)
[2022-08-18] MEDS ORDERED: Bisacodyl 5 MG TAB PO PRN (19:25)
[2022-08-18] MEDS ORDERED: Guaifenesin DM 100-10/5 ML UDCUP PO PRN (19:25)
[2022-08-18] MEDS ORDERED: Nitroglycerin 0.4 MG TAB (25 Tab Bottle) SL PRN (19:25)
[2022-08-18] MEDS ORDERED: Mag-Al 1200 mg/1200 mg/30 ML UDCUP PO PRN (19:25)
[2022-08-18] MEDS ORDERED: traMADol HCl 50 MG TAB PO PRN (19:25)
[2022-08-18] MEDS: Carvedilol 3.125 MG TAB PO SCH ×2 (19:30→20:44)
[2022-08-18] MEDS: traMADol HCl 50 MG TAB PO PRN (20:46)
[2022-08-19] MEDS: Ketorolac Tromethamine 30 MG/ML VIAL IVP SCH ×5 (00:07→23:35)
[2022-08-19] MEDS: Potassium Chloride 10 MEQ TAB PO SCH (08:17)
[2022-08-19] MEDS: Magnesium 2 GM/50 ML(in water) 2 GM in Premix Bag 1 BAG IVPB SCH (08:17)
[2022-08-19] MEDS: Aspirin 81 mg Enteric Coated Tablet PO SCH (08:18)
[2022-08-19] MEDS: Furosemide 40 MG TAB PO SCH (08:18)
[2022-08-19] MEDS: Carvedilol 3.125 MG TAB PO SCH ×2 (08:18→21:53)
[2022-08-19 16:11] LABS: Actual Bicarbonate (HCO3a) 22.8 mEq/L (22-28); Analyzer IN Cardio OR; Base Excess (BEa) -0.8 mEq/L (-2.0 to +3.0); CO2 Tension 34.5 mmHg (35.0-45.0); Calcium, Ionized (arterial) 1.08 mmol/L (1.12-1.30); Carboxyhemoglobin (COHb) 0.3 gm% (0.0-3.0); Hemoglobin (Hb) 12.7 g/dL (14.0-18.0); Potassium - ABG Lab 3.64 mmol/L (3.70-5.30); pH, Arterial 7.44 (7.35-7.45)
[2022-08-19 16:12] LABS: Actual Bicarbonate (HCO3a) 22.4 mEq/L (22-28); Analyzer IN Cardio OR; Base Excess (BEa) 0.6 mEq/L (-2.0 to +3.0); CO2 Tension 26.7 mmHg (35.0-45.0); Calcium, Ionized (arterial) 0.98 mmol/L (1.12-1.30); Carboxyhemoglobin (COHb) 0.2 gm% (0.0-3.0); O2 Tension (PaO2), arterial 388.5 mmHg (> 70.0); Potassium - ABG Lab 4.31 mmol/L (3.70-5.30); pH, Arterial 7.54 (7.35-7.45)
[2022-08-19 16:12] LABS: Puncture Site Arterial Line
[2022-08-19 16:12] LABS: Analyzer IN Cardio OR; Base Excess (BEa) 0.9 mEq/L (-2.0 to +3.0); CO2 Tension 32.6 mmHg (35.0-45.0); Carboxyhemoglobin (COHb) 0.3 gm% (0.0-3.0); Hemoglobin (Hb) 10.2 g/dL (14.0-18.0); O2 Tension (PaO2), arterial 341.4 mmHg (> 70.0); Potassium - ABG Lab 4.23 mmol/L (3.70-5.30); pH, Arterial 7.49 (7.35-7.45)
[2022-08-19 16:12] LABS: Actual Bicarbonate (HCO3a) 21.8 mEq/L (22-28); Analyzer IN Cardio OR; Base Excess (BEa) -1.6 mEq/L (-2.0 to +3.0); CO2 Tension 32.7 mmHg (35.0-45.0); Calcium, Ionized (arterial) 1.08 mmol/L (1.12-1.30); Carboxyhemoglobin (COHb) 0.1 gm% (0.0-3.0); Hemoglobin (Hb) 12.4 g/dL (14.0-18.0); O2 Tension (PaO2), arterial 418.4 mmHg (> 70.0); Potassium - ABG Lab 3.91 mmol/L (3.70-5.30); pH, Arterial 7.44 (7.35-7.45)
[2022-08-19 16:13] LABS: Puncture Site Arterial Line
[2022-08-19 16:13] LABS: Puncture Site Arterial Line
[2022-08-19 16:13] LABS: Puncture Site Arterial Line
[2022-08-19] MEDS ORDERED: methylPREDNISolone Sod Succ/PF 125 MG/2 ML VIAL IVP SCH (19:05)
[2022-08-19] MEDS ORDERED: Budesonide 0.5 MG/2 ML NEB NEB SCH (19:30)
[2022-08-20 04:15] LABS: #Basophils 0.1 thou/uL (0.0-0.2); #Lymphocytes 0.5 thou/uL (1.20-3.40); #Monocytes 0.3 thou/uL (0.11-0.59); %Basophils 0.8 % (0.0-1.0); %Eosinophils 0.1 % (0.0-10.0); %Lymphocytes 5.8 % (21.0-51.0); %Monocytes 3.6 % (0.0-10.0); %Neutrophils 89.7 % (42.0-75.0); Hemoglobin 11.3 g/dL (14.0-18.0); Mean Corpuscular HGB CONC 33.8 g/dL (32.0-36.0); Mean Corpuscular Hemoglobin 30.8 pg (27.0-31.0); Mean Corpuscular Volume 91.3 fL (78.0-98.0); Mean Platelet Volume 9.1 fL (7.4-10.4); Platelet Count 142 thou/uL (130-400); RBC Distribution Width 12.1 % (11.5-14.5); Red Blood Cell (RBC) Count 3.68 mill/uL (4.70-6.10); White Blood Cell (WBC) Count 8.9 thou/uL (4.8-10.8)
[2022-08-20 04:36] LABS: Anion Gap 14 mmol/L (10-20); BUN (Urea Nitrogen) 16 mg/dL (8.4-25.7); Calc. Creatinine Clearance 83 mL/min (70-130); Calcium 8.2 mg/dL (7.8-10.44); Carbon Dioxide 23 mmol/L (23-31); Chloride 107 mmol/L (98-107); Estimated GFR 92; Glucose 142 mg/dL (83-110); Potassium 3.9 mmol/L (3.5-5.1); Sodium 140 mmol/L (136-145)
[2022-08-20] MEDS: Ketorolac Tromethamine 30 MG/ML VIAL IVP SCH (05:52)
[2022-08-20] MEDS: Budesonide 0.5 MG/2 ML NEB NEB SCH ×2 (07:08→18:56)
[2022-08-20] MEDS ORDERED: methylPREDNISolone Sod Succ/PF 125 MG/2 ML VIAL IVP SCH (09:00)
[2022-08-20] MEDS: Aspirin 81 mg Enteric Coated Tablet PO SCH (09:21)
[2022-08-20] MEDS: Carvedilol 3.125 MG TAB PO SCH ×2 (09:21→20:40)
[2022-08-20] MEDS: Furosemide 40 MG TAB PO SCH (09:21)
[2022-08-20] MEDS: Potassium Chloride 10 MEQ TAB PO SCH (09:21)
[2022-08-21] MEDS ORDERED: Diltiazem HCl 125 MG, Admixture Fee 1 EACH in Sodium Chloride 0.9% 100 ML IVPB SCH (04:00)
[2022-08-21 04:59] LABS: #Lymphocytes 0.9 thou/uL (1.20-3.40); #Monocytes 0.9 thou/uL (0.11-0.59); #Neutrophils 9.4 thou/uL (1.40-6.50); %Eosinophils 0.1 % (0.0-10.0); %Lymphocytes 8.3 % (21.0-51.0); %Monocytes 7.7 % (0.0-10.0); %Neutrophils 83.9 % (42.0-75.0); Hemoglobin 10.3 g/dL (14.0-18.0); Mean Corpuscular HGB CONC 34.8 g/dL (32.0-36.0); Mean Corpuscular Hemoglobin 30.8 pg (27.0-31.0); Mean Corpuscular Volume 88.5 fL (78.0-98.0); Mean Platelet Volume 8.2 fL (7.4-10.4); Platelet Count 200 thou/uL (130-400); RBC Distribution Width 15.9 % (11.5-14.5); Red Blood Cell (RBC) Count 3.33 mill/uL (4.70-6.10); White Blood Cell (WBC) Count 11.2 thou/uL (4.8-10.8)
[2022-08-21 05:10] LABS: Anion Gap 12 mmol/L (10-20); BUN (Urea Nitrogen) 19 mg/dL (8.4-25.7); Calc. Creatinine Clearance 88 mL/min (70-130); Calcium 8.5 mg/dL (7.8-10.44); Carbon Dioxide 25 mmol/L (23-31); Chloride 107 mmol/L (98-107); Estimated GFR 94; Glucose 119 mg/dL (83-110); Sodium 140 mmol/L (136-145)
[2022-08-21] MEDS: Budesonide 0.5 MG/2 ML NEB NEB SCH (07:19)
[2022-08-21] MEDS: Potassium Chloride 10 MEQ TAB PO SCH (08:39)
[2022-08-21] MEDS: Valsartan 80 MG TAB PO SCH (08:40)
[2022-08-21] MEDS: predniSONE 20 MG TAB PO SCH ×2 (08:40→20:58)
[2022-08-21] MEDS: Carvedilol 3.125 MG TAB PO SCH ×2 (08:40→20:58)
[2022-08-21] MEDS: Furosemide 40 MG TAB PO SCH (08:40)
[2022-08-21] MEDS: Aspirin 81 mg Enteric Coated Tablet PO SCH (08:40)
[2022-08-21] MEDS ORDERED: Digoxin 0.5 MG/2 ML AMP SLOW IVP SCH (08:45)
[2022-08-21] MEDS: Diltiazem HCl 125 MG, Admixture Fee 1 EACH in Sodium Chloride 0.9% 100 ML IVPB SCH ×2 (09:44→16:32)
[2022-08-22 04:58] LABS: Anion Gap 10 mmol/L (10-20); BUN (Urea Nitrogen) 26 mg/dL (8.4-25.7); Calc. Creatinine Clearance 81 mL/min (70-130); Calcium 8.6 mg/dL (7.8-10.44); Carbon Dioxide 27 mmol/L (23-31); Chloride 105 mmol/L (98-107); Estimated GFR 93; Glucose 113 mg/dL (83-110); Potassium 4.4 mmol/L (3.5-5.1); Sodium 138 mmol/L (136-145)
[2022-08-22 05:02] LABS: #Lymphocytes 1.3 thou/uL (1.20-3.40); #Monocytes 0.8 thou/uL (0.11-0.59); #Neutrophils 7.6 thou/uL (1.40-6.50); %Basophils 0.1 % (0.0-1.0); %Eosinophils 0.2 % (0.0-10.0); %Lymphocytes 13.7 % (21.0-51.0); %Monocytes 8.3 % (0.0-10.0); %Neutrophils 77.7 % (42.0-75.0); Hemoglobin 10.6 g/dL (14.0-18.0); Mean Corpuscular HGB CONC 33.2 g/dL (32.0-36.0); Mean Corpuscular Hemoglobin 30.5 pg (27.0-31.0); Mean Platelet Volume 8.6 fL (7.4-10.4); Platelet Count 281 thou/uL (130-400); RBC Distribution Width 12.2 % (11.5-14.5); Red Blood Cell (RBC) Count 3.47 mill/uL (4.70-6.10); White Blood Cell (WBC) Count 9.8 thou/uL (4.8-10.8)
[2022-08-22] MEDS: Budesonide 0.5 MG/2 ML NEB NEB SCH ×3 (06:21→18:41)
[2022-08-22] MEDS: predniSONE 20 MG TAB PO SCH ×2 (07:46→20:21)
[2022-08-22] MEDS: Aspirin 81 mg Enteric Coated Tablet PO SCH (07:46)
[2022-08-22] MEDS: Furosemide 40 MG TAB PO SCH (07:46)
[2022-08-22] MEDS: Potassium Chloride 10 MEQ TAB PO SCH (07:47)
[2022-08-22] MEDS: Carvedilol 3.125 MG TAB PO SCH ×2 (07:47→20:21)
[2022-08-22] MEDS: Valsartan 80 MG TAB PO SCH (07:48)
[2022-08-22] MEDS: traMADol HCl 50 MG TAB PO PRN (21:48)
[2022-08-23] MEDS: Budesonide 0.5 MG/2 ML NEB NEB SCH (06:58)
[2022-08-23] MEDS: Aspirin 81 mg Enteric Coated Tablet PO SCH (09:04)
[2022-08-23] MEDS: Valsartan 80 MG TAB PO SCH (09:04)
[2022-08-23] MEDS: Potassium Chloride 10 MEQ TAB PO SCH (09:04)
[2022-08-23] MEDS: Furosemide 40 MG TAB PO SCH (09:04)
[2022-08-23] MEDS: Carvedilol 3.125 MG TAB PO SCH (09:04)
[2022-08-23] MEDS: predniSONE 20 MG TAB PO SCH (09:05)
[2022-08-23 11:55] VITALS: BP 129/61; TEMP 97.7
[2022-08-23 11:58] LABS: Magnesium 2.1 mg/dL (1.6-2.6)
== END 2022-08-23 13:08 | disposition home or self-care (01) | DRG 234 ==
LOC: ERS 20:54 → ERHOLD 23:20 → 2SW 08-13 15:31 → OBSVTOIN 08-14 14:50 → CCU 08-17 08:16 → 2NO 08-19 01:41
PROVIDERS: ADMIT Thoracic Surgery (Cardiothoracic Vascular Surgery); ATTEND Internal Medicine
PROC: 4A023N7 Measurement of Cardiac Sampling and Pressure, Left Heart, Percutaneous Approach (ICD-10-PCS; principal; 2022-08-14)
PROC: B2151ZZ Fluoroscopy of Left Heart using Low Osmolar Contrast (ICD-10-PCS; 2022-08-14)
PROC: B2111ZZ Fluoroscopy of Multiple Coronary Arteries using Low Osmolar Contrast (ICD-10-PCS; 2022-08-14)
PROC: 02100Z9 Bypass Coronary Artery, One Artery from Left Internal Mammary, Open Approach (ICD-10-PCS; 2022-08-17)
PROC: 021109W Bypass Coronary Artery, Two Arteries from Aorta with Autologous Venous Tissue, Open Approach (ICD-10-PCS; 2022-08-17)
PROC: 06BQ4ZZ Excision of Left Saphenous Vein, Percutaneous Endoscopic Approach (ICD-10-PCS; 2022-08-17)
PROC: 5A1221Z Performance of Cardiac Output, Continuous (ICD-10-PCS; 2022-08-17)
PROC: 02L70ZK Occlusion of Left Atrial Appendage, Open Approach (ICD-10-PCS; 2022-08-17)
DX: I21.4 Non-ST elevation (NSTEMI) myocardial infarction (principal); I69.951 Hemiplegia and hemiparesis following unspecified cerebrovascular disease affecting right dominant side; J90 Pleural effusion, not elsewhere classified; J10.1 Influenza due to other identified influenza virus with other respiratory manifestations; Z20.822 Contact with and (suspected) exposure to COVID-19; I10 Essential (primary) hypertension; I73.9 Peripheral vascular disease, unspecified; I25.10 Atherosclerotic heart disease of native coronary artery without angina pectoris; D72.829 Elevated white blood cell count, unspecified; I48.91 Unspecified atrial fibrillation; Z90.09 Acquired absence of other part of head and neck; Z95.5 Presence of coronary angioplasty implant and graft; Z79.82 Long term (current) use of aspirin; Z79.899 Other long term (current) drug therapy; Z98.890 Other specified postprocedural states; Z82.49 Family history of ischemic heart disease and other diseases of the circulatory system
CPT/HCPCS: 36415; 36416; 36430; 71045; 80048; 80053; 80061; 81003; 82805; 83605; 83735; 84443; 84484; 85025; 85610; 86850; 86900; 86901; 87811; 93005; 93010; 93306; 93458; 93798; 94002; 94150; 94640; 94760; 96372; 97139; 99152; C1751; C1769; C1887; G0378; J0690; J1100; J1160; J1642; J1644; J1650; J1815; J1885; J2001; J2150; J2250; J2370; J2440; J2704; J2720; J2930; J3010; J3370; J3475; J3480; J3490; J7030; J7120; J7512; J7620; J7626; P9045; Q9967; S0017; S0028